=== PATIENT | female | born 1970 ===

== ENCOUNTER 2019-02-02 08:30 | Inpatient (IN) | payer OTHER ==
[~2019-02-02] VITALS: Ht 177.8 cm; Wt 89.4 kg
[2019-02-02] MEDS ORDERED: COZAAR25 MG PO (08:41)
[2019-02-02] MEDS ORDERED: RELAFEN PO (08:42)
[2019-02-02] MEDS ORDERED: CRESTOR10 MG PO (08:42)
[2019-02-04] MEDS ORDERED: NABUMETONE500 MG (13:33)
[2019-02-04] MEDS ORDERED: NABUMETONE750 MG PO (13:51)
== END 2019-02-05 09:56 | disposition home or self-care (01) | DRG 621 ==
LOC: SURH 02-04 06:15 → O/R 02-04 06:15 → SURH 02-04 07:00
PROVIDERS: ADMIT Specialist
PROC: 0W0F0ZZ Alteration of Abdominal Wall, Open Approach (ICD-10-PCS; principal; 2019-02-04 07:00)
DX: E65 Localized adiposity (principal); E66.01 Morbid (severe) obesity due to excess calories; K43.2 Incisional hernia without obstruction or gangrene; R63.4 Abnormal weight loss; Z88.0 Allergy status to penicillin